=== PATIENT | female | born 2000 | race Two or more races ===

== ENCOUNTER 2023-07-01 12:08 | Outpatient (CLI) | payer MEDICAID ==
[~2023-07-01] VITALS: Ht 170.2 cm; Wt 80.4 kg
[~2023-07-01 12:08] MED LIST: IRON325T2 PO; PREN1CHW6 PO
[2023-07-01 12:24] VITALS: BP 113/58
[2023-07-01] MEDS ORDERED: HOME MED LIST COMPLETE! XX SCH (12:25)
== END 2023-07-01 12:46 | disposition home or self-care (01) ==
LOC: M LDO 12:08
PROVIDERS: ATTEND Obstetrics & Gynecology
DX: O26.853 Spotting complicating pregnancy, third trimester (principal); O34.219 Maternal care for unspecified type scar from previous cesarean delivery; Z3A.35 35 weeks gestation of pregnancy; Z87.59 Personal history of other complications of pregnancy, childbirth and the puerperium
CPT/HCPCS: 59025; G0463

== ENCOUNTER → 2023-07-04 | Outpatient (REF) | payer MEDICAID | LOC: M SFHCWAGY 17:18 | PROVIDERS: ATTEND Obstetrics & Gynecology | DX: Z34.83 Encounter for supervision of other normal pregnancy, third trimester (principal) ==

== ENCOUNTER 2023-07-06 15:44 | Emergency (ER) | payer MEDICAID, OTHER ==
[~2023-07-06] VITALS: Ht 170.2 cm; Wt 79.0 kg
[2023-07-06 15:45] VITALS: TEMP 97.2
[2023-07-06 17:35] LABS: BASO % 0.3 % (0.0-1.0); EOS % 0.1 % (0.0-3.0); HEMOGLOBIN 12.8 g/dl (12.0-15.5); LYMPH # 1.6 10^3/uL (1.5-5.0); LYMPH % 21.7 % (24.0-44.0); MEAN CORPUSCULAR HEMOGLOBIN 32.8 pg (27.0-33.0); MEAN CORPUSCULAR HGB CONC 35.6 g/dl (32.0-36.5); MEAN CORPUSCULAR VOLUME 92.3 fl (80.0-96.0); MONO # 0.4 10^3/uL (0.0-0.8); NEUTROPHILS # 5.2 10^3/uL (1.5-8.5); NEUTROPHILS % 71.5 % (36.0-66.0); PLATELET COUNT, AUTOMATED 105 10^3/uL (150-450); WHITE BLOOD COUNT 7.3 10^3/uL (4.0-10.0)
[2023-07-06] MEDS ORDERED: POTASSIUM CHLORIDE 10MEQ SR TABLET PO ONE ×2 (18:10→19:50)
[2023-07-06] MEDS ORDERED: KCL 10MEQ/100ML SWI (KRUN) 10 MEQ in IV 1 EA IV ONE (18:10)
[2023-07-06 18:12] LABS: ALKALINE PHOSPHATASE 59 U/L (46-116); ALT/SGPT 14 U/L (7.0-40); AST/SGOT 17 U/L (<34); BILIRUBIN,DIRECT 0.1 MG/DL (<0.4); BILIRUBIN,TOTAL 0.5 MG/DL (0.3-1.2); BLOOD UREA NITROGEN < 5 MG/DL (9-23); CALCIUM LEVEL 8.5 MG/DL (8.5-10.1); CARBON DIOXIDE LEVEL 22 MMOL/L (20-31); CHLORIDE LEVEL 106 MMOL/L (98-107); CREATININE FOR GFR 0.41 MG/DL (0.55-1.30); GLOMERULAR FILTRATION RATE > 60.0 (>60); GLUCOSE, FASTING 97 MG/DL (60-100); MAGNESIUM LEVEL 1.7 MG/DL (1.8-2.4); POTASSIUM SERUM 2.8 MMOL/L (3.5-5.1); SODIUM LEVEL 139 MMOL/L (136-145)
[2023-07-06] MEDS ORDERED: MAGNESIUM OXIDE 400MG TAB (MAG-OX) PO ONE (18:40)
[2023-07-06 20:00] VITALS: BP 141/73; O2SAT 99
== END 2023-07-06 20:12 | disposition home or self-care (01) ==
LOC: M ED 15:44
DX: O99.283 Endocrine, nutritional and metabolic diseases complicating pregnancy, third trimester (principal); R07.9 Chest pain, unspecified; Z79.899 Other long term (current) drug therapy
CPT/HCPCS: 80047; 80048; 80076; 83735; 85025; 93005; 96365; 99284; G0463

== ENCOUNTER → 2025-07-07 | Outpatient (REF) | payer OTHER ==
[~2025-07-07] MED LIST changes: +FOLTTAB9 PO; +IBUP80TA PO; +OXYC1TAB23 PO; +PRED20TA PO
== END ==
LOC: M PLALAB 14:32
PROVIDERS: ATTEND Advanced Practice Midwife
DX: Z34.80 Encounter for supervision of other normal pregnancy, unspecified trimester (principal)

== ENCOUNTER → 2025-07-31 | Outpatient (CLI) | payer OTHER ==
[~2025-07-31] MED LIST changes: +AMIT50TA PO; +D 50CAP2 PO; +MULT-90 PO; +ONDA-83 PO; +PERCOCET PO
== END ==
LOC: M PLALAB 12:30
PROVIDERS: ATTEND Advanced Practice Midwife
DX: Z34.80 Encounter for supervision of other normal pregnancy, unspecified trimester (principal)

== ENCOUNTER → 2025-08-05 | Outpatient (CLI) | payer OTHER ==
[2025-08-05 15:28] LABS: PLATELET COUNT, AUTOMATED 156 10^3/uL (150-450)
[2025-08-05 15:56] LABS: TOTAL PROTEIN,RANDOM URINE 12.5 MG/DL (0.0-14.0)
[2025-08-05 16:02] LABS: LDH LACTATE DEHYDROGENASE 136 U/L (120-246)
[2025-08-05 16:03] LABS: ALT/SGPT < 9 U/L (7.0-40); AST/SGOT 14 U/L (<34); CREATININE FOR GFR 0.50 MG/DL (0.55-1.30); GLOMERULAR FILTRATION RATE > 90.0 (>60)
[2025-08-05 16:30] LABS: HIV 1&2 SCREEN NEGATIVE (NEGATIVE)
[2025-08-05 16:38] LABS: HEPATITIS C VIRUS ABY INDEX < 0.02 INDEX (<0.8)
[2025-08-05 17:12] LABS: GC DNA AMPLIFICATION NEGATIVE (NEGATIVE)
[2025-08-05 18:36] LABS: Trichomonas vaginalis (AMP) NOT DETECTED (NEGATIVE)
== END ==
LOC: M PLALAB 13:46 → M LAB 13:46
PROVIDERS: ATTEND Advanced Practice Midwife
DX: Z34.80 Encounter for supervision of other normal pregnancy, unspecified trimester (principal)

== ENCOUNTER → 2025-08-28 | Outpatient (CLI) | payer OTHER | LOC: M WHC 15:24 | PROVIDERS: ATTEND Advanced Practice Midwife | DX: Z36.89 Encounter for other specified antenatal screening (principal); Z3A.18 18 weeks gestation of pregnancy ==